=== PATIENT | female | born 1985 | race Caucasian/White ===

== ENCOUNTER 2019-04-27 17:00 | Observation (INO) | payer OTHER ==
[2019-04-27 18:24] LABS: URINE AMPHETAMINES SCREEN NEGATIVE; URINE BARBITURATES SCREEN NEGATIVE; URINE BENZODIAZEPINES SCREEN NEGATIVE; URINE COCAINE SCREEN NEGATIVE; URINE MARIJUANA (THC) SCREEN NEGATIVE; URINE METHADONE SCREEN NEGATIVE; URINE PHENCYCLIDINE SCREEN NEGATIVE
[2019-04-27 18:27] LABS: APPEARANCE,URINE CLEAR; BILIRUBIN,URINE NEGATIVE (NEGATIVE); COLOR,URINE STRAW; GLUCOSE, URINE NEGATIVE (NEGATIVE); KETONES,URINE NEGATIVE (NEGATIVE); LEUKOCYTE ESTERASE,URINE NEGATIVE (NEGATIVE); NITRITE,URINE NEGATIVE (NEGATIVE); PROTEIN,URINE NEGATIVE (NEGATIVE); URINE SPECIFIC GRAVITY 1.002; UROBILINOGEN,URINE NEGATIVE mg/dL (<2.0)
[2019-04-27 18:32] LABS: UR PRO/CREAT RATIO RESULT 1.2 mg/mg (0.0-0.2); URINE CREATININE 12.3 mg/dL (16-327); URINE PROTEIN 14.6 mg/dL (<12)
[2019-04-27 18:36] LABS: ABSOLUTE EOSINOPHILS # (AUTO) 0.1 10^3/uL (0.0-0.6); ABSOLUTE LYMPHOCYTES (AUTO) 1.2 10^3/uL (0.5-4.7); ABSOLUTE MONOCYTES (AUTO) 0.7 10^3/uL (0.1-1.4); BASOPHILS % (AUTO) 0.3 % (0-2); EOSINOPHILS % (AUTO) 0.7 % (0-6); HEMATOCRIT 34.2 % (36.0-47.0); LYMPHOCYTES % (AUTO) 13.2 % (13-45); MEAN CORPUSCULAR HEMOGLOBIN 32.1 pg (27.0-33.4); MEAN CORPUSCULAR HGB CONC 35.2 g/dL (32.0-36.0); MEAN CORPUSCULAR VOLUME 91 fl (80-97); MONOCYTES % (AUTO) 8.2 % (3-13); PLATELET COUNT 173 10^3/uL (150-450); RED BLOOD COUNT 3.75 10^6/uL (3.72-5.28); RED CELL DISTRIBUTION WIDTH 14.1 % (11.5-14.0); SEGMENTED NEUTROPHILS % (AUTO) 77.6 % (42-78); TOTAL CELLS COUNTED % (AUTO) 100 %
[2019-04-27 18:54] LABS: ALBUMIN 3.2 g/dL (3.5-5.0); ALKALINE PHOSPHATASE 129 U/L (38-126); ANION GAP 5 (5-19); ASPARTATE AMINO TRANSFERASE 20 U/L (14-36); BILIRUBIN,TOTAL 0.5 mg/dL (0.2-1.3); BLOOD UREA NITROGEN 7 mg/dL (7-20); CARBON DIOXIDE 23 mmol/L (22-30); CHLORIDE 108 mmol/L (98-107); GLUCOSE 83 mg/dL (75-110); POTASSIUM 4.3 mmol/L (3.6-5.0); TOTAL PROTEIN 6.3 g/dL (6.3-8.2); URIC ACID 3.9 mg/dL (2.5-6.2)
[2019-04-27] MEDS ORDERED: PRENATAL VITAMIN W DHA CAPSULE PO ONE ×2 (20:12→20:13)
--- NOTE | 2019-04-27 21:08 | PDOC H&P ---
History of Present Illness Admission Date/PCP: 04/27/19 19:45 SOO BELTRAN MD Patient complains of: Elevated blood pressure in History of Present Illness: KUMAR PAULINO is a 33 year old at 35.6 wks EGA by first trimester US dating. Seen in the office with elevated blood pressures in the third trimester of . She denies SANTORO, CP, SOB, RUQ pain, n/v or vision changes. She has hx of preE in G1 and delivered at 36 wks that but not due to her mild preE but rather d/t SROM. She reports good FM. No LOF or VB Preg also complicated by A1GDM and mild polyhydraminos recent US with MELANIE of 26 Here she has had Elevated b/p but no severe range during triage evaluation. Her PIH labs showed a Uric acid of 3.9, AST/ALT of 20/11 and PLT of 173. Her P:C ratio was 1.2 Urinalysis showed no sign of infection and no protein. Past Medical History 1 Baby 1 Delivery: Other - After SROM . G1 complicated by mild preeclampsia Past Surgical History Past Surgical History: Reports: None Social History Information Source: Patient Lives with: Family Smoking Status: Never Smoker Frequency of Alcohol Use: None Hx Recreational Drug Use: No Family History Family History: Reviewed & Not Pertinent Parental Family History Reviewed: Yes Children Family History Reviewed: Yes Sibling(s) Family History Reviewed.: Yes Medication/Allergy Home Medications: Aspirin [Adult Low Dose Aspirin EC] 81 mg PO DAILY 04/27/19 Vits96/Iron Fum/Folic [ Tablet] 1 each PO DAILY 04/27/19 Allergies/Adverse Reactions: No Known Allergies Allergy (Unverified 04/27/19 17:13) Review of Systems Constitutional: ABSENT: chills, fever(s), headache(s), weight gain, weight loss Cardiovascular: ABSENT: chest pain, dyspnea on exertion, edema, orthropnea, p alpitations Respiratory: ABSENT: cough, hemoptysis Gastrointestinal: ABSENT: abdominal pain, constipation, diarrhea, hematemesis, hematochezia, nausea, vomiting Genitourinary: ABSENT: dysuria, hematuria Musculoskeletal: ABSENT: joint swelling Integumentary: ABSENT: rash, wounds Neurological: ABSENT: abnormal gait, abnormal speech, confusion, dizziness, focal weakness, syncope Psychiatric: ABSENT: anxiety, depression, homidical ideation, suicidal ideation Physical Exam - Physical Exam Vital Signs: Intake & Output 04/26/19 04/27/19 04/28/19 06:59 06:59 06:59 Weight 84.2 kg General appearance: PRESENT: no acute distress, cooperative Respiratory exam: PRESENT: clear to auscultation sherita Cardiovascular exam: PRESENT: RRR, +S1, +S2 GI/Abdominal exam: PRESENT: normal bowel sounds Extremities exam: PRESENT: full ROM, +1 edema, other - Patella reflexes 1/4 BLE. No clonus Neurological exam: PRESENT: alert, awake, oriented to person, oriented to place, oriented to time Result Laboratory Results: 04/27/19 18:24 04/27/19 18:24 04/27/19 04/27/19 04/27/19 17:08 18:24 18:24 WBC 9.0 RBC 3.75 Hgb 12.0 Hct 34.2 L MCV 91 MCH 32.1 MCHC 35.2 RDW 14.1 H Plt Count 173 Seg Neutrophils % 77.6 Sodium 136.3 L Potassium 4.3 Chloride 108 H Carbon Dioxide 23 Anion Gap 5 BUN 7 Creatinine 0.48 L Est GFR ( Amer) > 60 Glucose 83 Uric Acid 3.9 Calcium 9.0 Total Bilirubin 0.5 AST 20 Alkaline Phosphatase 129 H Total Protein 6.3 Albumin 3.2 L Urine Color STRAW Urine Appearance CLEAR Urine pH 7.0 Ur Specific [place] 1.002 Urine Protein NEGATIVE Urine Glucose (UA) NEGATIVE Urine Ketones NEGATIVE Urine Blood NEGATIVE Urine Nitrite NEGATIVE Ur Leukocyte Esterase NEGATIVE Urine WBC (Auto) 0 Urine RBC (Auto) 0 Assessment & Plan - Diagnosis (1) Elevated blood pressure affecting in third trimester, antepartum Is this a current diagnosis for this admission?: Yes (2) Mild preeclampsia Qualifiers: Trimester: third trimester Qualified Code(s): O14.03 - Mild to moderate pre-eclampsia, third trimester Is this a current diagnosis for this admission?: Yes Plan: 33 yo at 35.6 wks EGA with mildly elevated b/p's and P:C 1.2 : Mild preeclampsia -Admit for serial b/p, labs and furter evaluation w/ 24 hr urine. -VS Q 4 hrs -Diet : GDM -Accuchecks fasting and post meal once a day which is what she has been doing as they are well controled -NST q 12 hrs. NST in triage Cat 1 -PIH labs in triage normal except the P:C -24 hr urine overnight -Call for b/p systolic > 160 or diastolic > 110 -BPP in am -Repeat H blood work in am -WIll obtain GBS culture this evening -If mild preeclampsia confirmed will plan delviery at 37 wks . She may be cand idate for outpatient management of mild preE with twice weekly testing and weekly labs. If severe preE develops then delivery recommended.
--- NOTE | 2019-04-27 21:31 | Non Stress Test Report ---
Non Stress Test Datetime Report Generated by CPN: 04/27/2019 21:30 DEMOGRAPHIC EGA NST: 35.6 INDICATION Indication for Study: Ordered by Provider Indication for Study (NST) Other: LC- PReE work up VITAL SIGNS Temperature - NST: 97.7 Pulse - NST: 82 RESP - NST: 16 NBPSYS NST: 137 NBPDIA NST: 80 URINE RESULTS Urine Protein, NST: Negative Urine Ketones - NST: Negative Urine Glucose - NST: Negative Urine Blood - NST: Negative MONITORING Monitor Explained: Monitor Explained; Test Explained; Patient Verbalized Understanding Time on Monitor: 04/27/2019 19:00 Time off Monitor: 04/27/2019 21:21 NST Duration: 141 NST INTERVENTIONS NST Interventions: IV Fluids Physician Notified NST: Green BABY A: [id number] BABY A Movement : Present Contraction Frequency : 2-5 FHR Baseline : 135 Accelerations : 15X15 Decelerations : None Variability : Moderate 6-25bpm NST Review: Meets Criteria for Reactive NST NST Review and Verified By : RN Dheeraj NST Results: Reactive NST REPORT Report Trigger: Send Report
[2019-04-28 05:52] LABS: ABSOLUTE EOSINOPHILS # (AUTO) 0.1 10^3/uL (0.0-0.6); ABSOLUTE LYMPHOCYTES (AUTO) 1.3 10^3/uL (0.5-4.7); ABSOLUTE MONOCYTES (AUTO) 0.6 10^3/uL (0.1-1.4); ABSOLUTE NEUT (AUTO) 5.9 10^3/uL (1.7-8.2); BASOPHILS % (AUTO) 0.4 % (0-2); EOSINOPHILS % (AUTO) 1.7 % (0-6); HEMATOCRIT 32.8 % (36.0-47.0); HEMOGLOBIN 11.7 g/dL (12.0-15.5); LYMPHOCYTES % (AUTO) 15.9 % (13-45); MEAN CORPUSCULAR HEMOGLOBIN 32.7 pg (27.0-33.4); MEAN CORPUSCULAR HGB CONC 35.7 g/dL (32.0-36.0); MEAN CORPUSCULAR VOLUME 91 fl (80-97); PLATELET COUNT 156 10^3/uL (150-450); RED BLOOD COUNT 3.59 10^6/uL (3.72-5.28); RED CELL DISTRIBUTION WIDTH 14.4 % (11.5-14.0); TOTAL CELLS COUNTED % (AUTO) 100 %
[2019-04-28 06:06] LABS: ALBUMIN 2.8 g/dL (3.5-5.0); ALKALINE PHOSPHATASE 112 U/L (38-126); ANION GAP 7 (5-19); ASPARTATE AMINO TRANSFERASE 17 U/L (14-36); BILIRUBIN,TOTAL 0.6 mg/dL (0.2-1.3); BLOOD UREA NITROGEN 6 mg/dL (7-20); CALCIUM 8.7 mg/dL (8.4-10.2); CARBON DIOXIDE 21 mmol/L (22-30); CHLORIDE 109 mmol/L (98-107); GLUCOSE 79 mg/dL (75-110); TOTAL PROTEIN 5.7 g/dL (6.3-8.2); URIC ACID 4.3 mg/dL (2.5-6.2)
--- NOTE | 2019-04-28 11:04 | RADIOLOGY REPORT (SQ) ---
EXAM DESCRIPTION: U/S PROFILE W/O STRESS COMPLETED DATE/TIME: 04/28/2019 10:55 am REASON FOR STUDY: preE, well being COMPARISON: None. TECHNIQUE: Limited graham-scale realtime and static images of the fetus to measure specified parameter s. LIMITATIONS: None. FINDINGS: HEART RATE: 145 beats per minute. MELANIE: LvP 4.5 cm BREATHING MOVEMENT: 2 points. MOVEMENT: 2 points. POSTURE AND TONE: 2 points. QUALITATIVE MELANIE: 2 points. OTHER: Vertex presentation. IMPRESSION: BIOPHYSICAL PROFILE: 01/25. Trimester of : Third - 28 weeks to delivery COMMENT: BREATHING MOVEMENTS: 2 POINTS: PRESENT 0 POINTS: ABSENT MOTION: 2 POINTS: PRESENT 0 POINTS: ABSENT TONE: 2 POINTS: PRESENT 0 POINTS: ABSENT AMNIOTIC FLUID VOLUME: 2 POINTS: LARGEST POCKET GREATER THAN 2 CM DEPTH. 0 POINTS: NO POCKET OF 2 CM. TECHNICAL DOCUMENTATION: JOB ID: [id number] [employer]- All Rights Reserved Reading location - IP/workstation name: [email or web address]
[2019-04-28 20:57] LABS: URINE PROTEIN 14.6 mg/dL (<12)
[2019-04-28 20:58] LABS: URINE CREATININE 30.4 mg/dL (16-327)
[2019-04-28 21:01] LABS: 24 HOUR URINE PROTEIN RESULT 823 mg/day (42-225)
--- NOTE | 2019-04-29 09:57 | PDOC DISCHARGE SUMMARY ---
Impression - Admit/DC Date/PCP Admission Date/Primary Care Provider: 04/27/19 19:45 SOO BELTRAN MD Discharge Date: 04/29/19 - Discharge Diagnosis (1) Elevated blood pressure affecting in third trimester, antepartum Is this a current diagnosis for this admission?: Yes (2) Mild preeclampsia Is this a current diagnosis for this admission?: Yes - Additional Information Discharge Diet: As Tolerated, Regular Discharge Activity: Activity As Tolerated Referrals: SOO BELTRAN MD [Primary Care Provider] - Home Medications: Aspirin [Adult Low Dose Aspirin EC] 81 mg PO DAILY 04/27/19 Vits96/Iron Fum/Folic [ Tablet] 1 each PO DAILY 04/27/19 History of Present Illiness History of Present Illness: KUMAR PAULINO is a 33 year old at 36.1 wks EGA by first trimester US dating. Seen in the office with elevated blood pressures in the third trimester of . She denies SANTORO, CP, SOB, RUQ pain, n/v or vision changes. She has hx of preE in G1 and delivered at 36 wks that but not due to her mild preE but rather d/t SROM. She reports good FM. No LOF or VB Preg also complicated by A1GDM and mild polyhydraminos recent US with MELANIE of 26 Here she has had Elevated b/p but no severe range during triage evaluation. Her PIH labs showed a Uric acid of 3.9, AST/ALT of 20/11 and PLT of 173. Her P:C ratio was 1.2 Urinalysis showed no sign of infection and no protein. 24 hour urine resulted positive for preeclampsia. Has remained asymptomatic. Will plan d/c with outpatient twice weekly testing and weekly labs until delivery at approximately 37 wks. Preeclampsia precautions reviewed. Physical Exam - Physical Exam Vital Signs: Temp Pulse Resp BP Pulse Ox 97.9 F 99 16 118/57 L 99 04/29/19 07:18 04/29/19 07:18 04/29/19 07:18 04/29/19 07:18 04/29/19 07:18 Intake & Output 04/28/19 04/29/19 04/30/19 06:59 06:59 06:59 Intake Total 240 Balance 240 Weight 84.2 kg 81 kg Results Laboratory Results: WBC 8.0 10^3/uL (4.0-10.5) 04/28/19 05:30 RBC 3.59 10^6/uL (3.72-5.28) L 04/28/19 05:30 Hgb 11.7 g/dL (12.0-15.5) L 04/28/19 05:30 Hct 32.8 % (36.0-47.0) L 04/28/19 05:30 MCV 91 fl (80-97) 04/28/19 05:30 MCH 32.7 pg (27.0-33.4) 04/28/19 05:30 MCHC 35.7 g/dL (32.0-36.0) 04/28/19 05:30 RDW 14.4 % (11.5-14.0) H 04/28/19 05:30 Plt Count 156 10^3/uL (150-450) 04/28/19 05:30 Lymph % (Auto) 15.9 % (13-45) 04/28/19 05:30 [place] % (Auto) 8.0 % (3-13) 04/28/19 05:30 Eos % (Auto) 1.7 % (0-6) 04/28/19 05:30 Baso % (Auto) 0.4 % (0-2) 04/28/19 05:30 Absolute Neuts (auto) 5.9 10^3/uL (1.7-8.2) 04/28/19 05:30 Absolute Lymphs (auto) 1.3 10^3/uL (0.5-4.7) 04/28/19 05:30 Absolute Monos (auto) 0.6 10^3/uL (0.1-1.4) 04/28/19 05:30 Absolute Eos (auto) 0.1 10^3/uL (0.0-0.6) 04/28/19 05:30 Absolute Basos (auto) 0.0 10^3/uL (0.0-0.2) 04/28/19 05:30 Seg Neutrophils % 74.0 % (42-78) 04/28/19 05:30 Sodium 136.5 mmol/L (137-145) L 04/28/19 05:30 Potassium 4.0 mmol/L (3.6-5.0) 04/28/19 05:30 Chloride 109 mmol/L (98-107) H 04/28/19 05:30 Carbon Dioxide 21 mmol/L (22-30) L 04/28/19 05:30 Anion Gap 7 (5-19) 04/28/19 05:30 BUN 6 mg/dL (7-20) L 04/28/19 05:30 Creatinine 0.48 mg/dL (0.52-1.25) L 04/28/19 05:30 Est GFR ( Amer) > 60 (>60) 04/28/19 05:30 Est GFR (MDRD) Non-Af > 60 (>60) 04/28/19 05:30 Glucose 79 mg/dL (75-110) 04/28/19 05:30 Uric Acid 4.3 mg/dL (2.5-6.2) 04/28/19 05:30 Calcium 8.7 mg/dL (8.4-10.2) 04/28/19 05:30 Total Bilirubin 0.6 mg/dL (0.2-1.3) 04/28/19 05:30 Direct Bilirubin 0.0 mg/dL (0.0-0.4) 04/28/19 05:30 Neonat Total Bilirubin Not Reportable 04/28/19 05:30 Neonat Direct Bilirubin Not Reportable 04/28/19 05:30 Neonat Indirect Bili Not Reportable 04/28/19 05:30 AST 17 U/L (14-36) 04/28/19 05:30 ALT 9 U/L (<35) 04/28/19 05:30 Alkaline Phosphatase 112 U/L (38-126) 04/28/19 05:30 Lactate Dehydrogenase 170 U/L (120-246) 04/28/19 05:30 Total Protein 5.7 g/dL (6.3-8.2) L 04/28/19 05:30 Albumin 2.8 g/dL (3.5-5.0) L 04/28/19 05:30 Urine Color STRAW 04/27/19 17:08 Urine Appearance CLEAR 04/27/19 17:08 Urine pH 7.0 (5.0-9.0) 04/27/19 17:08 Ur Specific [place] 1.002 04/27/19 17:08 Urine Protein NEGATIVE mg/dL (NEGATIVE) 04/27/19 17:08 Urine Glucose (UA) NEGATIVE mg/dL (NEGATIVE) 04/27/19 17:08 Urine Ketones NEGATIVE mg/dL (NEGATIVE) 04/27/19 17:08 Urine Blood NEGATIVE (NEGATIVE) 04/27/19 17:08 Urine Nitrite NEGATIVE (NEGATIVE) 04/27/19 17:08 Urine Bilirubin NEGATIVE (NEGATIVE) 04/27/19 17:08 Urine Urobilinogen NEGATIVE mg/dL (<2.0) 04/27/19 17:08 Ur Leukocyte Esterase NEGATIVE (NEGATIVE) 04/27/19 17:08 Urine WBC (Auto) 0 /HPF 04/27/19 17:08 Urine RBC (Auto) 0 /HPF 04/27/19 17:08 Urine Bacteria (Auto) TRACE /HPF 04/27/19 17:08 Squamous Epi Cells Auto 1 /HPF 04/27/19 17:08 Ur 24 Hour Volume 5640 mL 04/27/19 19:23 Ur 24 Hour Volume 5640 mL 04/27/19 19:23 Urine Creatinine 30.4 mg/dL (16-327) 04/27/19 19:23 Ur Creatinine mg/24hr 1.7 mg/day (0.8-2.0) 04/27/19 19:23 Ur Total Protein 24 Hr 823 mg/day (42-225) H 04/27/19 19:23 Protein/Creatinin Ratio 1.2 mg/mg (0.0-0.2) H 04/27/19 17:08 Urine Total Protein 14.6 mg/dL (<12) H 04/27/19 19:23 Urine Ascorbic Acid NEGATIVE (NEGATIVE) 04/27/19 17:08 Urine Opiates Screen NEGATIVE 04/27/19 17:08 Urine Methadone Screen NEGATIVE 04/27/19 17:08 Ur Barbiturates Screen NEGATIVE 04/27/19 17:08 Ur Phencyclidine Scrn NEGATIVE 04/27/19 17:08 Ur Amphetamines Screen NEGATIVE 04/27/19 17:08 U Benzodiazepines Scrn NEGATIVE 04/27/19 17:08 Urine Cocaine Screen NEGATIVE 04/27/19 17:08 U Marijuana (THC) Screen NEGATIVE 04/27/19 17:08 Impressions: Stress Test 04/28/19 08:00 IMPRESSION: BIOPHYSICAL PROFILE: 01/25. Trimester of : Third - 28 weeks to delivery Stroke Is this a Stroke Patient?: No Acute Heart Failure - Is this a Heart Failure Patient?: No
[2019-04-29 11:07] VITALS: BP 134/83
== END 2019-04-29 11:08 | disposition home or self-care (01) ==
LOC: LC 17:00 → LR 19:45 → INTOOBSV 19:45 → 2S 21:33
PROVIDERS: ADMIT Obstetrics & Gynecology; ATTEND Obstetrics & Gynecology
DX: O14.03 Mild to moderate pre-eclampsia, third trimester (principal); O40.3XX0 Polyhydramnios, third trimester, not applicable or unspecified; O24.410 Gestational diabetes mellitus in pregnancy, diet controlled; Z3A.35 35 weeks gestation of pregnancy; Z87.59 Personal history of other complications of pregnancy, childbirth and the puerperium; Z79.82 Long term (current) use of aspirin
CPT/HCPCS: 59025 ×3; 36415 ×2; 82570 ×2; 83615; 84156; 84550 ×2; 85025 ×2; 80053 ×2; 81001; 87081; 80307; 76819; G0378 ×3; G0379; J3490

== ENCOUNTER 2019-05-02 09:30 | Outpatient (CLI) | payer OTHER ==
--- NOTE | 2019-05-02 10:31 | Non Stress Test Report ---
Non Stress Test Datetime Report Generated by CPN: 05/02/2019 10:30 DEMOGRAPHIC Test Number: 2 EGA NST: 36.4 INDICATION Indication for Study (NST) Other: 36.4 preeclampsia; repeat NST MONITORING Monitor Explained: Monitor Explained; Test Explained; Patient Verbalized Understanding Time on Monitor: 05/02/2019 09:38 Time off Monitor: 05/02/2019 10:15 NST Duration: 37 NST INTERVENTIONS NST Interventions: PO Hydration; Reposition Patient Physician Notified NST: C Morrow CNM BABY A: [id number] BABY A Movement : Present Contraction Frequency : Irrgeular FHR Baseline : 150 Accelerations : 15X15 Decelerations : None Variability : Moderate 6-25bpm NST Review: Meets Criteria for Reactive NST NST Review and Verified By : CieraRN NST Results: Reactive NST REPORT Report Trigger: Send Report
== END 2019-05-02 10:21 | disposition home or self-care (01) ==
LOC: LC 09:30
PROVIDERS: ATTEND Obstetrics & Gynecology
PROC: 4A1HXCZ Monitoring of Products of Conception, Cardiac Rate, External Approach (ICD-10-PCS; principal; 2019-05-02)
DX: O14.93 Unspecified pre-eclampsia, third trimester (principal); Z3A.36 36 weeks gestation of pregnancy
CPT/HCPCS: 59025

== ENCOUNTER 2019-05-08 21:13 | Inpatient (IN) | payer OTHER ==
[2019-05-08] MEDS ORDERED: MAG HYDROX/AL HYDROX/SIMETH SUSP 30 ML UDCUP PO PRN (21:53)
[2019-05-08] MEDS ORDERED: ACETAMINOPHEN 325 MG TABLET PO PRN (21:53)
[2019-05-08] MEDS ORDERED: OXYTOCIN/NORMAL SALINE 20 UNIT/1,000 ML RTUINJ IV PRN (21:53)
[2019-05-08] MEDS ORDERED: DINOPROSTONE 10 MG VAGINAL INSERT.SR PV ONE (21:53)
[2019-05-08] MEDS ORDERED: ZOLPIDEM TARTRATE 5 MG TABLET PO PRN (21:53)
[2019-05-08] MEDS ORDERED: RINGERS SOLUTION,LACTATED 300 ML IV ONE (21:53)
[2019-05-08] MEDS ORDERED: DINOPROSTONE 10 MG VAGINAL INSERT.SR ONE (21:58)
[2019-05-08] MEDS: RINGERS SOLUTION,LACTATED 1,000 ML IV PRN (22:01)
[2019-05-08 22:02] LABS: ABSOLUTE EOSINOPHILS # (AUTO) 0.1 10^3/uL (0.0-0.6); ABSOLUTE LYMPHOCYTES (AUTO) 1.6 10^3/uL (0.5-4.7); ABSOLUTE NEUT (AUTO) 7.6 10^3/uL (1.7-8.2); EOSINOPHILS % (AUTO) 0.8 % (0-6); HEMOGLOBIN 12.3 g/dL (12.0-15.5); MEAN CORPUSCULAR HEMOGLOBIN 32.7 pg (27.0-33.4); TOTAL CELLS COUNTED % (AUTO) 100 %
[2019-05-08 22:05] LABS: BASOPHILS % (AUTO) 0.2 % (0-2); HEMATOCRIT 34.3 % (36.0-47.0); LYMPHOCYTES % (AUTO) 15.9 % (13-45); MEAN CORPUSCULAR VOLUME 91 fl (80-97); MONOCYTES % (AUTO) 9.3 % (3-13); PLATELET COUNT 174 10^3/uL (150-450); RED BLOOD COUNT 3.76 10^6/uL (3.72-5.28); RED CELL DISTRIBUTION WIDTH 13.9 % (11.5-14.0); SEGMENTED NEUTROPHILS % (AUTO) 73.8 % (42-78); WHITE BLOOD COUNT 10.4 10^3/uL (4.0-10.5)
[2019-05-08 22:40] LABS: APPEARANCE,URINE CLEAR; BILIRUBIN,URINE NEGATIVE (NEGATIVE); COLOR,URINE YELLOW; GLUCOSE, URINE NEGATIVE (NEGATIVE); KETONES,URINE NEGATIVE (NEGATIVE); LEUKOCYTE ESTERASE,URINE NEGATIVE (NEGATIVE); NITRITE,URINE NEGATIVE (NEGATIVE); PROTEIN,URINE NEGATIVE (NEGATIVE); URINE SPECIFIC GRAVITY 1.013; UROBILINOGEN,URINE NEGATIVE mg/dL (<2.0)
[2019-05-08 22:58] LABS: URINE AMPHETAMINES SCREEN NEGATIVE; URINE BARBITURATES SCREEN NEGATIVE; URINE BENZODIAZEPINES SCREEN NEGATIVE; URINE COCAINE SCREEN NEGATIVE; URINE MARIJUANA (THC) SCREEN NEGATIVE; URINE METHADONE SCREEN NEGATIVE; URINE PHENCYCLIDINE SCREEN NEGATIVE
--- NOTE | 2019-05-09 00:46 | Admission Physical ---
Datetime Report Generated by CPN: 05/09/2019 00:46 CURRENT ADMISSION Chief Complaint: Scheduled Induction of Labor Indication for Induction: Polyhydramnios Indication for Induction- Other: GDM Admit Impression : Term, Intrauterine ; Intact Membranes; Induction of Labor Admit Plan: Admit to Unit; Initiate Labor Induction Protocol ALLERGIES Medication Allergies: Unknown Medication Allergies: No Known Allergies (05/08/2019) Latex: No Latex Allergies Food Allergies: none Environmental Allergies: cats, cigarette smoke, eyes swell OBSTETRICAL HISTORY EDC: 05/26/2019 00:00 : 2 Para: 1 Term: 0 : 1 SAB: 0 IAB: 0 Ectopic: 0 Livin Cesareans: 0 VBACs: 0 Multiple Births: 0 Gestational Diabetes: Yes Rh Sensitization: No Incompetent Cervix: No RAMONITA: No Infertility: No ART Treatment: No Uterine Anomaly: No IUGR: No Hx Previous C/S: No Macrosomia: No Hx Loss/Stillborn: No PIH: No Hx : No Placenta Previa/Abruption: No Depression/PP Depression: No PTL/PROM: Yes Post Hemorrhage: Yes Current Procedures: Ultrasound; NST Obstetrical History Comments: G1:2016 Pre-E, SROM at 36 wks and delivered G2:current, GDM, Pre-E SEE RECORDS Alcohol: No Marijuana : No Cocaine: No Other Illicit Drugs: No Cigarettes: Former Smoker. [id number] MEDICAL HISTORY Diabetes: Yes Diabetes Type: Gestational Diabetes Blood Transfusion: No Pulmonary Disease (Asthma, TB): No Breast Disease: No Hypertension: No Drop Wire Aligner Surgery: No Heart Disease: No Hosp/Surgery: Yes Autoimmune Disorder: No Anesthetic Complications: No Kidney Disease: No Abnormal Pap Smear: No Neuro/Epilepsy: No Psychiatric Disorders: No Other Medical Diseases: No Hepatitis/Liver Disease: No Significant Family History: No Varicosities/Phlebitis: No Trauma/Violence : No Thyroid Dysfunction: No Medical History Comments: hospitalized with previous delivery INFECTIOUS HISTORY Gonorrhea: No Genital Herpes: No Chlamydia: No Tuberculosis: No Syphilis: No Hepatitis: No HIV/AIDS Exposure: No Rash or Viral Illness: No HPV: No PHYSICAL EXAM General: Normal HEENT: Normal Neurologic: Normal Thyroid: Normal Heart: Normal Lungs: Normal Breast: Deferred Back: Normal Abdomen: Normal Genitourinary Exam: Normal Extremities: Normal DTRs: Normal Pelvic Type: Adequate Vital Signs: Reviewed VAGINAL EXAM Dilatation: 1 Effacement: 0 Station: -3 MEMBRANES Pooling: Negative Membranes: Intact FETUS A EGA: 37.4 Monitoring: External US FHR- Baseline: 120 Variability: Moderate 6-25bpm Decelerations: None FHR Category: Category I Presentation: Vertex Admit Comment: admit for induction PLANS FOR LABOR AND DELIVERY Labor and Delivery: None Pain Management: Epidural Feeding Preference: Breast Benefit of Breast Feed Discussed: Yes Circumcision: Yes INFORMED CONSENT Signature: with User ID: [email or web address]
[2019-05-09] MEDS ORDERED: OXYTOCIN 10 UNIT/ML VIAL ONE (07:23)
[2019-05-09] MEDS ORDERED: LIDOCAINE 1% INJ-PF (10 MG/ML) 30 ML SDV ONE (07:23)
[2019-05-09] MEDS ORDERED: MISOPROSTOL 0.2 MG TABLET ONE (07:23)
[2019-05-09] MEDS ORDERED: OXYTOCIN/NORMAL SALINE 0 UNIT/0 ML RTUINJ ONE (07:23)
--- NOTE | 2019-05-09 08:04 | Warning Signs in Babies ---
VOD Warning Signs Datetime Report Generated by N: 05/09/2019 08:04 VOD#608 -Warning Signs in Babies: Viewed with Parent(s)/Family (05/09/2019 08:03:Maryann Bonner RN)
[2019-05-09] MEDS: RINGERS SOLUTION,LACTATED 1,000 ML IV PRN ×2 (12:06→19:15)
[2019-05-09] MEDS ORDERED: FENTANYL/BUPIVACAINE/NS/PF 300 MCG/150 ML RTUINJ EPI ONE (19:23)
[2019-05-09] MEDS ORDERED: BUPIVACAINE HCL 0.25 % INJ/PF (2.5 MG/1 ML) 30 ML VIAL ONE (19:23)
[2019-05-09] MEDS ORDERED: EPHEDRINE SULFATE INJ 50 MG/1 ML AMPULE ONE (19:23)
[2019-05-10] MEDS ORDERED: OXYTOCIN/NORMAL SALINE 20 UNIT/1,000 ML RTUINJ ONE (01:07)
[2019-05-10] MEDS ORDERED: PROMETHAZINE HCL 25 MG TABLET PO PRN (03:01)
[2019-05-10] MEDS ORDERED: DIPHENHYDRAMINE HCL 25 MG CAPSULE PO PRN (03:01)
[2019-05-10] MEDS ORDERED: OXYTOCIN/NORMAL SALINE 20 UNIT/1,000 ML RTUINJ IV PRN (03:01)
[2019-05-10] MEDS ORDERED: MEASLES,MUMPS&RUBELLA VACC/PF 0.5 ML VIAL SUBCUT PRN (03:01)
[2019-05-10] MEDS ORDERED: MAGNESIUM HYDROXIDE SUSP 30 ML UDCUP PO PRN (03:01)
[2019-05-10] MEDS ORDERED: GLYCERIN/WITCH HAZEL LEAF 1 EACH MED..WIPE TP PRN (03:01)
[2019-05-10] MEDS ORDERED: ACETAMINOPHEN 650 MG SUPP.RECT PR PRN (03:01)
[2019-05-10] MEDS ORDERED: ZOLPIDEM TARTRATE 5 MG TABLET PO PRN (03:01)
[2019-05-10] MEDS ORDERED: NA PHOS,M-B/NA PHOS,DI-BA (ADULT) 133 ML ENEMA PR PRN (03:01)
[2019-05-10] MEDS ORDERED: DIPH/PERTUSS(ACELL)/TETANUS VAC/PF 0.5 ML SYR (>=10YO) IM PRN (03:01)
[2019-05-10] MEDS ORDERED: BENZOCAINE/MENTHOL AEROSOL SPRAY 56 ML TOP PRN (03:01)
[2019-05-10] MEDS ORDERED: PSEUDOEPHEDRINE HCL 30 MG TABLET PO PRN (03:01)
[2019-05-10] MEDS ORDERED: PROMETHAZINE HCL INJ 25 MG/1 ML VIAL IV PRN (03:01)
[2019-05-10] MEDS ORDERED: PROMETHAZINE HCL 25 MG SUPP.RECT PR PRN (03:01)
[2019-05-10] MEDS ORDERED: ACETAMINOPHEN WITH CODEINE #3 TABLET PO PRN ×2 (03:01)
[2019-05-10] MEDS ORDERED: DIBUCAINE 1% OINTMENT 56 GM TP PRN (03:01)
--- NOTE | 2019-05-10 03:07 | Delivery Summary ---
Del Sum A-C Datetime Report Generated by CPN: 05/10/2019 03:06 DELIVERY PERSONNEL DELIVERY PERSONNEL: [id number] Delivery Doctor:: Lauren Green MD Labor and Delivery Nurse:: Kong Malagon RN Labor and Delivery Nurse:: Karon Cleary RN Nursery Nurse:: Diana Dacosta RN Additional Personnel: : Sravanthi Rossi RN MATERNAL INFORMATION Delivery Anesthesia: Epidural Medications After Delivery: Pitocin Bolus-Please Comment Meds After Delivery Comment: 20 units pitocin after placenta delivery Estimated Blood Loss (ml): 400 Maternal Complications: None Provider Comments: Called to bedside while in the operating room doing a CS on a different patient. BY the time I arrived in room, patient had delivered with RN in attendence. Placenta had not delivered. WIth uterine massage, placenta delivered. Fundus massaged. Trickle of vaginal bleeding noted. Bimanual massage done and large amount of clots with small amount of membranes noted. Following this uterus remained firm. No lacerations, mild edema. Mother and stable LABOR SUMMARY EDC: 05/26/2019 00:00 No. Babies in Womb: 1 Attempted: No Labor Anesthesia: Epidural LABOR INFORMATION Reason for Induction: Pre-Eclampsia; Maternal Diabetes; Polyhydramnios Onset of Labor: 05/09/2019 12:23 Complete Dilatation: 05/10/2019 00:59 Cervical Ripening Agents: Cervidil Oxytocin: Induction Group B Beta Strep: Negative Steroids Given: None Reason Steroids Not Administered: Not Applicable MEMBRANES Membranes Rupture Method: Artificial Rupture of Membranes: 05/09/2019 15:47 Length of Rupture (hr): 9.78 Amniotic Fluid Color: Clear Amniotic Fluid Amount: Moderate Amniotic Fluid Odor: Normal STAGES OF LABOR Stage 1 hr: 12 Stage 1 min: 36 Stage 2 hr: 0 Stage 2 min: 35 Stage 3 hr: 0 Stage 3 min: 39 Total Time in Labor hr: 13 Total Time in Labor min: 50 VAGINAL DELIVERY Episiotomy: None Laceration #1: None Laceration Extension #1: N/A Laceration Repair: Not Applicable Sponge Count Correct: N/A Sharps Count Correct: N/A CSECTION DELIVERY Primary Indication: N/A Secondary Indication: N/A CSection Urgency: N/A CSection Incidence: N/A Labor: N/A Elective: N/A CSection Incision: N/A BABY A INFORMATION Infant Delivery Date/Time: 05/10/2019 01:34 Method of Delivery: Vaginal Born in Route : No : N/A Forceps: N/A Vacuum Extraction: N/A Shoulder Dystocia : No PRESENTATION/POSITION BABY A Presentation: Cephalic Cephalic Presentation: Vertex Vertex Position: Right Occipital Anterior Breech Presentation: N/A PLACENTA INFORMATION BABY A Placenta Delivery Time : 05/10/2019 02:13 Placenta Method of Delivery: Spontaneous Placenta Status: Delivered SCORES BABY A Heart Rate 1 min: >100 bpm Resp Effort 1 min: Good Cry Reflex Irritability 1 min: Cough or Sneeze or Pulls Away Muscle Tone 1 min: Active Motion Color 1 min: Blue/Pale Resuscitation Effort 1 min: Tactile Stimulation SCORE 1 MIN: 8 Heart Rate 5 min: >100 bpm Resp Effort 5 min: Good Cry Reflex Irritability 5 min: Cough or Sneeze or Pulls Away Muscle Tone 5 min: Active Motion Color 5 min: Body [place], Extremities Blue Resuscitation Effort 5 min: N/A SCORE 5 MIN: 9 INFORMATION BABY A Gestational Age at Delivery: 37.5 Gestational Status: Early Term- 37- 38.6 Weeks Infant Outcome : Liveborn Condition : Stable Infant Sex: Male IDENTIFICATION BABY A Verification Date/Time: 05/10/2019 01:51 ID Band Number: [id number] Mother's Name Verified: Yes RN Verifying : K Flo, RN/J Kincaid, RN WEIGHT/LENGTH BABY A Birthweight (gm): 3535 Infant Weight (lb): 7 Weight (oz): 13 Length (in): 20.50 Length (cm): 52.07 CORD INFORMATION BABY A No. Cord Vessels: 3 Nuchal Cord : N/A Cord Blood Taken: Yes-For Eval (Mom's Blood Type - or O+) Suction: None ASSESSMENT BABY A Complications: None Physical Findings at Delivery: Other Physical Findings- Other: see nursery notes; void at delivery Respirations: Grunting Skin to Skin: Yes Skin to Skin Time (min): 60 Hvac Mechanic/ALS Called : No Care By: C. Bactat RN Transferred To: Remains with Mother BABY B INFORMATION : N/A SIGNATURES Signature: with User ID: Silvia : with User ID: [email or web address]
[2019-05-10] MEDS: IBUPROFEN 800 MG TABLET PO SCH ×3 (05:37→21:56)
--- NOTE | 2019-05-10 08:47 | PDOC PROGRESS REPORT ---
Subjective-OB Progress Note for:: 05/10/19 Physical Exam (OB) Vital Signs: Temp Pulse Resp BP Pulse Ox 98.3 F 116 H 20 131/72 H 98 05/10/19 04:30 05/10/19 04:30 05/10/19 04:30 05/10/19 04:30 05/10/19 04:30 Intake & Output 05/09/19 05/10/19 05/11/19 06:59 06:59 06:59 Intake Total 1894 Balance 1894 Weight 85.1 kg - PIH/Pre-Eclampsia Clonus: Negative Headache: Absent Epigastric Pain: No Visual Changes: No - Lochia Lochia Amount: Small 10-25 ml Lochia Color: Rubra/Red - Abdomen Description: Soft Hernia Present: No Bowel Sounds: Normoactive Flatus Presence: Present Stool: No Fundal Description: Firm Fundal Height: u/u - u/2 Objective-Diagnostic Laboratory: 05/08/19 21:49
[2019-05-10] MEDS: SENNOSIDES/DOCUSATE 8.6-50 MG 1 EACH TABLET PO SCH (09:57)
[2019-05-10] MEDS: FAMOTIDINE 20 MG TABLET PO SCH ×2 (09:57→21:56)
[2019-05-10] MEDS: FERROUS SULFATE 325 MG TABLET PO SCH ×2 (09:57→17:55)
[2019-05-10] MEDS: DOCUSATE SODIUM 100 MG CAPSULE PO SCH ×2 (09:57→17:55)
[2019-05-10] MEDS ORDERED: PRENATAL VITAMIN W DHA CAPSULE PO SCH (10:00)
[2019-05-11] MEDS: IBUPROFEN 800 MG TABLET PO SCH ×3 (05:03→21:25)
[2019-05-11] MEDS: DOCUSATE SODIUM 100 MG CAPSULE PO SCH ×2 (09:02→17:21)
[2019-05-11] MEDS: FERROUS SULFATE 325 MG TABLET PO SCH ×2 (09:02→17:21)
[2019-05-11] MEDS: FAMOTIDINE 20 MG TABLET PO SCH ×2 (09:02→21:25)
[2019-05-11] MEDS: SENNOSIDES/DOCUSATE 8.6-50 MG 1 EACH TABLET PO SCH (09:02)
--- NOTE | 2019-05-11 09:17 | PDOC PROGRESS REPORT ---
Subjective-OB Progress Note for:: 05/11/19 Subjective: Doing well, hsb at BS, both are sad baby in NICU but improving, b reastfeeding/pumping, B neg, needs Rhogam, scant bleeding Physical Exam (OB) Vital Signs: Temp Pulse Resp BP Pulse Ox 97.6 F 73 14 131/72 H 98 05/11/19 04:29 05/11/19 04:29 05/11/19 04:29 05/11/19 04:29 05/11/19 04:29 Intake & Output 05/10/19 05/11/19 05/12/19 06:59 06:59 06:59 Intake Total 1894 750 Balance 1894 750 - PIH/Pre-Eclampsia DTR's: 2 + Clonus: Negative Headache: Absent Epigastric Pain: No Visual Changes: No - Lochia Lochia Amount: Small 10-25 ml Lochia Color: Rubra/Red - Abdomen Description: Soft, Round Hernia Present: No Fundal Description: Firm, Midline Fundal Height: u/u - u/2 Objective-Diagnostic Laboratory: 05/08/19 21:49 Assessment and Plan(PN) - Assessment and Plan (1) GDM (gestational diabetes mellitus) Qualifiers: Gestational diabetes mellitus control: diet-controlled Trimester: second trimester Qualified Code(s): O24.410 - Gestational diabetes mellitus in , diet controlled Is this a current diagnosis for this admission?: Yes (2) Delivery normal Is this a current diagnosis for this admission?: Yes (3) Elevated blood pressure affecting in third trimester, antepartum Is this a current diagnosis for this admission?: Yes (4) Mild preeclampsia Qualifiers: Trimester: third trimester Qualified Code(s): O14.03 - Mild to moderate pre-eclampsia, third trimester Is this a current diagnosis for this admission?: Yes - Time Spent with Patient Time with patient: Less than 15 minutes Medications reviewed and adjusted accordingly: Yes - Disposition Anticipated Discharge: Home Within: within 24 hours
[2019-05-11 10:53] LABS: HEMATOCRIT 30.7 % (36.0-47.0); HEMOGLOBIN 10.7 g/dL (12.0-15.5); MEAN CORPUSCULAR HEMOGLOBIN 32.5 pg (27.0-33.4); MEAN CORPUSCULAR HGB CONC 34.9 g/dL (32.0-36.0); MEAN CORPUSCULAR VOLUME 93 fl (80-97); PLATELET COUNT 158 10^3/uL (150-450); RED BLOOD COUNT 3.29 10^6/uL (3.72-5.28); RED CELL DISTRIBUTION WIDTH 14.2 % (11.5-14.0); WHITE BLOOD COUNT 11.2 10^3/uL (4.0-10.5)
[2019-05-11] MEDS ORDERED: PRENATAL VITAMIN W DHA CAPSULE PO SCH (22:00)
[2019-05-12] MEDS: IBUPROFEN 800 MG TABLET PO SCH ×2 (06:10→13:54)
[2019-05-12 07:56] VITALS: BP 128/76
--- NOTE | 2019-05-12 08:11 | PDOC PROGRESS REPORT ---
Subjective-OB Progress Note for:: 05/12/19 Subjective: Doing well,OOB, walking, had epidural, has some tingling in spine that will lasts a few seconds, Physical Exam (OB) Vital Signs: Temp Pulse Resp BP Pulse Ox 97.8 F 78 16 128/76 H 100 05/12/19 07:55 05/12/19 07:55 05/12/19 07:55 05/12/19 07:55 05/12/19 07:55 Intake & Output 05/11/19 05/12/19 05/13/19 06:59 06:59 06:59 Intake Total 750 1800 Balance 750 1800 - PIH/Pre-Eclampsia DTR's: 1 + Clonus: Negative Headache: Absent Epigastric Pain: No Visual Changes: No - Lochia Lochia Amount: Scant < 10 ml Lochia Color: Rubra/Red - Abdomen Description: Soft Hernia Present: No Fundal Description: Firm, Midline Fundal Height: u/u - u/2 Objective-Diagnostic Laboratory: 05/11/19 09:52 05/11/19 05/11/19 09:52 09:52 WBC 11.2 H RBC 3.29 L Hgb 10.7 L Hct 30.7 L MCV 93 MCH 32.5 MCHC 34.9 RDW 14.2 H Plt Count 158 Blood Type B NEGATIVE Assessment and Plan(PN) - Assessment and Plan (1) GDM (gestational diabetes mellitus) Qualifiers: Gestational diabetes mellitus control: diet-controlled Trimester: second trimester Qualified Code(s): O24.410 - Gestational diabetes mellitus in , diet controlled Is this a current diagnosis for this admission?: Yes (2) Delivery normal Is this a current diagnosis for this admission?: Yes (3) Elevated blood pressure affecting in third trimester, antepartum Is this a current diagnosis for this admission?: Yes (4) Mild preeclampsia Qualifiers: Trimester: third trimester Qualified Code(s): O14.03 - Mild to moderate pre-eclampsia, third trimester Is this a current diagnosis for this admission?: Yes - Time Spent with Patient Time with patient: Less than 15 minutes Medications reviewed and adjusted accordingly: Yes - Disposition Anticipated Discharge: Home Within: within 24 hours
--- NOTE | 2019-05-12 08:18 | PDOC DISCHARGE SUMMARY ---
Impression - Admit/DC Date/PCP Admission Date/Primary Care Provider: 05/08/19 21:13 SOO BELTRAN MD Discharge Date: 05/12/19 - Discharge Diagnosis (1) GDM (gestational diabetes mellitus) Is this a current diagnosis for this admission?: Yes (2) Delivery normal Is this a current diagnosis for this admission?: Yes (3) Elevated blood pressure affecting in third trimester, antepartum Is this a current diagnosis for this admission?: Yes (4) Mild preeclampsia Is this a current diagnosis for this admission?: Yes - Additional Information Resuscitation Status: Full Code Discharge Diet: As Tolerated, Regular Discharge Activity: Activity As Tolerated, Pelvic Rest Referrals: SOO BELTRAN MD [Primary Care Provider] - (RTC 2 weeks) Home Medications: Vits96/Iron Fum/Folic [ Tablet] 1 each PO DAILY 04/27/19 HPI Gestational Age: 37.5 Reason(s) for Admission: Induction of Labor, Gestional Diabetes Admission Note: Pre-E mild, polyhydramnios Procedures: NST, Ultrasound Intrapartum Procedure(s): Spontaneous Vaginal Delivery - male. 01/26 wt 7-13 Hospital Course Hospital Course: routine Results Laboratory Results: WBC 11.2 10^3/uL (4.0-10.5) H 05/11/19 09:52 RBC 3.29 10^6/uL (3.72-5.28) L 05/11/19 09:52 Hgb 10.7 g/dL (12.0-15.5) L 05/11/19 09:52 Hct 30.7 % (36.0-47.0) L 05/11/19 09:52 MCV 93 fl (80-97) 05/11/19 09:52 MCH 32.5 pg (27.0-33.4) 05/11/19 09:52 MCHC 34.9 g/dL (32.0-36.0) 05/11/19 09:52 RDW 14.2 % (11.5-14.0) H 05/11/19 09:52 Plt Count 158 10^3/uL (150-450) 05/11/19 09:52 Lymph % (Auto) 15.9 % (13-45) 05/08/19 21:49 [place] % (Auto) 9.3 % (3-13) 05/08/19 21:49 Eos % (Auto) 0.8 % (0-6) 05/08/19 21:49 Baso % (Auto) 0.2 % (0-2) 05/08/19 21:49 Absolute Neuts (auto) 7.6 10^3/uL (1.7-8.2) 05/08/19 21:49 Absolute Lymphs (auto) 1.6 10^3/uL (0.5-4.7) 05/08/19 21:49 Absolute Monos (auto) 1.0 10^3/uL (0.1-1.4) 05/08/19 21:49 Absolute Eos (auto) 0.1 10^3/uL (0.0-0.6) 05/08/19 21:49 Absolute Basos (auto) 0.0 10^3/uL (0.0-0.2) 05/08/19 21:49 Seg Neutrophils % 73.8 % (42-78) 05/08/19 21:49 Urine Color YELLOW 05/08/19 21:20 Urine Appearance CLEAR 05/08/19 21:20 Urine pH 7.0 (5.0-9.0) 05/08/19 21:20 Ur Specific [place] 1.013 05/08/19 21:20 Urine Protein NEGATIVE mg/dL (NEGATIVE) 05/08/19 21:20 Urine Glucose (UA) NEGATIVE mg/dL (NEGATIVE) 05/08/19 21:20 Urine Ketones NEGATIVE mg/dL (NEGATIVE) 05/08/19 21:20 Urine Blood NEGATIVE (NEGATIVE) 05/08/19 21:20 Urine Nitrite NEGATIVE (NEGATIVE) 05/08/19 21:20 Urine Bilirubin NEGATIVE (NEGATIVE) 05/08/19 21:20 Urine Urobilinogen NEGATIVE mg/dL (<2.0) 05/08/19 21:20 Ur Leukocyte Esterase NEGATIVE (NEGATIVE) 05/08/19 21:20 Urine Ascorbic Acid NEGATIVE (NEGATIVE) 05/08/19 21:20 Urine Opiates Screen NEGATIVE 05/08/19 21:20 Urine Methadone Screen NEGATIVE 05/08/19 21:20 Ur Barbiturates Screen NEGATIVE 05/08/19 21:20 Ur Phencyclidine Scrn NEGATIVE 05/08/19 21:20 Ur Amphetamines Screen NEGATIVE 05/08/19 21:20 U Benzodiazepines Scrn NEGATIVE 05/08/19 21:20 Urine Cocaine Screen NEGATIVE 05/08/19 21:20 U Marijuana (THC) Screen NEGATIVE 05/08/19 21:20 RPR NONREACTIVE (NONREACTIVE) 05/08/19 21:49 Blood Type B NEGATIVE 05/11/19 09:52 Antibody Screen POSITIVE 05/08/19 21:49 Antibody Identification RHOGAM INDUCED ANTI-D 05/08/19 21:49 Screen NEGATIVE 05/11/19 09:52 Plan Health Concerns: routine Plan of Treatment: no complications Goals: routine Time Spent: Less than 30 Minutes
[2019-05-12] MEDS: SENNOSIDES/DOCUSATE 8.6-50 MG 1 EACH TABLET PO SCH (10:59)
[2019-05-12] MEDS: FERROUS SULFATE 325 MG TABLET PO SCH (10:59)
[2019-05-12] MEDS: FAMOTIDINE 20 MG TABLET PO SCH (10:59)
[2019-05-12] MEDS: DOCUSATE SODIUM 100 MG CAPSULE PO SCH (11:00)
== END 2019-05-12 14:25 | disposition home or self-care (01) | DRG 807 ==
LOC: LR 21:13 → 2S 05-10 04:19
PROVIDERS: ADMIT Obstetrics & Gynecology; ATTEND Obstetrics & Gynecology
PROC: 10E0XZZ Delivery of Products of Conception, External Approach (ICD-10-PCS; principal; 2019-05-09)
PROC: 3E033VJ Introduction of Other Hormone into Peripheral Vein, Percutaneous Approach (ICD-10-PCS; 2019-05-09)
PROC: 10907ZC Drainage of Amniotic Fluid, Therapeutic from Products of Conception, Via Natural or Artificial Opening (ICD-10-PCS; 2019-05-09)
PROC: 3E0234Z Introduction of Serum, Toxoid and Vaccine into Muscle, Percutaneous Approach (ICD-10-PCS; 2019-05-11)
DX: O14.03 Mild to moderate pre-eclampsia, third trimester (principal); Z37.0 Single live birth; O40.3XX0 Polyhydramnios, third trimester, not applicable or unspecified; O24.410 Gestational diabetes mellitus in pregnancy, diet controlled; Z3A.37 37 weeks gestation of pregnancy
CPT/HCPCS: 36415; 80307; 81005; 85025; 85027; 85461; 86592; 86850; 86870; 86900; 86901; J2590; J2790; J3010; J3490

== ENCOUNTER → 2020-03-27 | Outpatient (CLI) | payer OTHER ==
[2020-03-27 10:37] VITALS: BP 140/87
--- NOTE | 2020-03-27 10:37 | ER RDC ASSESSMENT REPORT ---
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?: [facility] home - Symptoms Subjective Fever([place] feverish): No Chills: No Muscule Aches: No Runny Nose: No Sore Throat: No Cough (New or worsening chronic cough): No Shortness of breath: No Nausea or Vomiting: No Headache: No Abdominal Pain: No Diarrhea(3 or more loose stools in last 24 hours): No - Do you have any of the following Chronic lung disease: Asthma or emphysema or COPD: No Cystic Fibrosis: No Diabetes: No High Blood Pressure: No Cardiovascular Disease: No Chronic Kidney Disease: No Chronic Liver Disease: No Chronic blood disorder like Sickle Cell Disease: No Weak immune system due to disease or medication: No Neurologic condition that limits movement: No Developmental delay - Moderate to Severe: No Recent (within past 2 weeks) or current : No Morbid Obesity (>100 pounds over ideal weight): No - Objective Temperature: 98.5 F Pulse Rate: 77 Respiratory Rate: 18 Blood Pressure: 140/87 O2 Sat by Pulse Oximetry: 99 Objective: Given above, testing performed: covid Disposition: Home; Selfcare General - General Stated Complaint: covid testing Time Seen by Provider: 03/27/20 09:45 Mode of Arrival: Ambulatory Information source: Patient - HPI Notes: Patient presents to clinic for COVID-19 testing after coming in close contact with COVID 19 positive coworker. Patient is asymptomatic. They deny any cough, shortness of breath, fever, chills, muscle aches, rhinorrhea, sore throat, nausea or vomiting, headache, abdominal pain or diarrhea. Patient has no acute medical concerns. - Related Data Allergies/Adverse Reactions: No Known Allergies Allergy (Verified 05/08/19 21:22) Past Medical History - General Information source: Patient - Social History Smoking Status: Never Smoker Family History: Reviewed & Not Pertinent - Past Medical History Cardiac Medical History: Reports: None Pulmonary Medical History: Reports: None EENT Medical History: Reports: None Neurological Medical History: Reports: None Other: gestational diabetes Renal/ Medical History: Reports: None Malignancy Medical History: Reports: None GI Medical History: Reports: None Musculoskeletal Medical History: Reports None Skin Medical History: Reports None Psychiatric Medical History: Reports: None Traumatic Medical History: Reports: None Infectious Medical History: Reports: None Past Surgical History: Reports: None Physical Exam - General General appearance: Appears well, Alert In distress: None Notes: PHYSICAL EXAMINATION: GENERAL: Well-appearing and in no acute distress. HEAD: Atraumatic, normocephalic. EYES: sclera anicteric, conjunctiva are normal. ENT: nares patent. Moist mucous membranes. NECK: Normal range of motion, supple without lymphadenopathy. LUNGS: No increased work of breathing. Lung sounds CTAB and equal. No wheezes rales or rhonchi. HEART: Regular rate and rhythm without murmurs. ABDOMEN: Soft, nontender, normal bowel sounds, no guarding. EXTREMITIES: Normal range of motion, no pitting edema. No cyanosis. NEUROLOGICAL: A&O x 3. Normal speech. PSYCH: Normal mood, normal affect. SKIN: Warm, Dry, normal turgor, no rashes or lesions noted Patient Education/Counseling Counseling/Education: Patient presents for COVID 19 testing after close exposure to another person who has tested positive for COVID 19. Patient is asymptomatic at this time. Patient does not have emergency worrying symptoms such as difficulty breathing, shortness of breath, chest pain, pressure, confusion or cyanosis. Patient appears suitable for discharge as vital signs are stable and patient is nontoxic in appearance. Good return precautions have been discussed with patient, patient verbalized understanding and is agreeable with discharge plan of care at this time. Guidance for worsening S/SX: As a person under investigation for Covid 19, the [place] department of Health and Human Services, division of public health advises you to adhere to the following guidance until your test results are reported to you. If your test result is positive, you will receive additional information from your provider and your local health department at that time. Remain at home until you are cleared by the health provider or public health authorities. Keep a log of visitors to your home, notify any visitors to your home of your isolation status. If you plan to move to a new address or leave the county, notify the local health department in your County. Call your doctor or seek care if you have an urgent medical need. Before seeking medical care, call ahead to get instructions from the provider before arriving at the medical office clinic or hospital. Notify them that you are being tested for the virus that causes Covid 19 so that arrangements can be made, as necessary, to prevent transmission to others in the healthcare setting. Next, notify the local health department in your county. If a medical emergency arises and you need to call 911, inform the first responders that you are being tested for the virus that causes Covid 19. Next, notify the local health department in your county. RDC Discharge - Discharge Clinical Impression: Encounter for screening laboratory testing for COVID-19 virus in asymptomatic patient Condition: Good Disposition: Home; Selfcare
== END ==
LOC: RDC 09:18
PROVIDERS: ATTEND Registered Nurse
DX: Z20.828 Contact with and (suspected) exposure to other viral communicable diseases (principal)
CPT/HCPCS: 87635; 99201; 99211; C9803